=== PATIENT | male | born 1965 | race Caucasian/White ===

== ENCOUNTER 2019-07-13 00:53 | Emergency (ER) | payer OTHER ==
[~2019-07-13] VITALS: Ht 167.6 cm; Wt 95.3 kg
[2019-07-13 01:01] VITALS: Ht 167.6 cm; Wt 95.3 kg
[2019-07-13 06:05] VITALS: BP 121/85
== END 2019-07-13 06:05 | disposition home or self-care (01) ==
LOC: ED 00:53
DX: F10.129 Alcohol abuse with intoxication, unspecified (principal); I10 Essential (primary) hypertension